=== PATIENT | female | born 1980 | race Caucasian/White ===

== ENCOUNTER → 2017-04-23 | Outpatient (CLI) | payer OTHER ==
[~2017-04-23] MED LIST: ALBU90OI INH; ALBU90OI61; ARIP10 PO; AZIT500 PO; Arava10 MG; BUPR100 PO; BUPR75 PO; CLIN300 PO; CODGUAEL PO; Crutch1 EACH MISC; DIPH50; DULO60; ESCI10 PO; FLUO20; FLUT44OIA; GLIP10 PO; HYDACE5 PO; IBUP800; LABE100; METF500 PO; METF850; METTREX2.5 PO; MULVITMINE PO; NAPR500 PO; NITR100CA PO; NORETHINDRONE; NORT25 PO; PANT40 PO; PHENA200 PO; Pepcid40 MG PO; QUET100 PO; RANI150 PO; RXCODGUASY PO; SERT50 PO; TOPI25 PO; TRAZ50 PO; [UNRECOGNIZED DRUG - OTHER]
== END ==
LOC: LAB SHORT 12:30
DX: R30.0 Dysuria (principal)
CPT/HCPCS: 87086

== ENCOUNTER → 2017-04-26 | Outpatient (CLI) | payer OTHER | END | disposition home or self-care (01) | LOC: LAB 15:46 | DX: N39.0 Urinary tract infection, site not specified (principal) | CPT/HCPCS: 87086 ==

== ENCOUNTER → 2018-05-30 | Outpatient (CLI) | payer OTHER | END | disposition home or self-care (01) | LOC: LAB 16:22 → LAB SHORT 16:22 | DX: N39.0 Urinary tract infection, site not specified (principal) | CPT/HCPCS: 87077; 87086; 87186 ==

== ENCOUNTER → 2018-06-18 | Outpatient (CLI) | payer OTHER | END | disposition home or self-care (01) | LOC: LAB 17:40 → LAB SHORT 17:40 | DX: N39.0 Urinary tract infection, site not specified (principal) | CPT/HCPCS: 87077; 87086; 87186 ==

== ENCOUNTER → 2018-11-05 | Outpatient (CLI) | payer OTHER | END | disposition home or self-care (01) | LOC: LAB SHORT 16:19 → LAB 16:19 | DX: N39.0 Urinary tract infection, site not specified (principal) | CPT/HCPCS: 87077; 87086; 87186 ==

== ENCOUNTER → 2020-12-16 | Outpatient (CLI) | payer OTHER | LOC: LAB SHORT 11:06 → LAB 11:06 | DX: L03.113 Cellulitis of right upper limb (principal); Z88.0 Allergy status to penicillin; Z88.1 Allergy status to other antibiotic agents | CPT/HCPCS: 87070; 87205 ==

== ENCOUNTER 2021-05-10 18:48 | Emergency (ER) | payer OTHER ==
[~2021-05-10] VITALS: Ht 172.7 cm; Wt 133.8 kg
[~2021-05-10 18:48] MED LIST changes: +ALBU90OI; +AMLODIPINE-OLM1 EAC2 PO; +BASAGLAR K100 UNIT/6 SC; +LAMO100 PO; +LITH300C PO; +LOSA50 PO; +OLAN10 PO
[2021-05-10 20:40] LABS: BASOPHILS ABSOLUTE AUTO 0.14 K/mm3 (0.00-0.23); BASOPHILS PERCENT AUTO 1 % (0-2); EOSINOPHILS ABSOLUTE AUTO 0.25 K/mm3 (0.00-0.68); EOSINOPHILS PERCENT AUTO 2 % (0-6); Hematocrit 40.2 % (33.0-51.0); Hemoglobin 12.9 g/dL (11.5-16.0); IMMATURE GRAN ABSOLUTE AUTO 0.54 K/mm3 (0.00-0.10); IMMATURE GRAN PERCENT AUTO 3 % (0-1); LYMPHOCYTES ABSOLUTE AUTO 3.47 K/mm3 (0.84-5.20); LYMPHOCYTES PERCENT AUTO 21 % (21-46); MONOCYTES ABSOLUTE AUTO 1.25 K/mm3 (0.16-1.47); MONOCYTES PERCENT AUTO 7 % (4-13); Mean Corpuscular HGB 26.1 pg (26.0-34.0); Mean Corpuscular HGB Conc 32.1 g/dL (31.5-36.5); Mean Corpuscular Volume 81 fL (80-100); Mean Platelet Volume 9.3 fL (9.1-12.4); NEUTROPHILS ABSOLUTE AUTO 11.15 K/mm3 (1.96-9.15); NEUTROPHILS PERCENT AUTO 66 % (41-73); Platelet Count 502 K/mm3 (150-400); RDW Coefficient Variation 15.4 % (11.7-14.2); RDW Standard Deviation 45.7 fL (35.1-46.3); Red Blood Cell Count 4.94 M/mm3 (3.80-5.20)
[2021-05-10 21:01] LABS: Albumin, Blood 3.9 g/dL (3.4-5.0); Bilirubin, Total 0.4 mg/dL (0.1-1.0); Bun/Creatinine Ratio 20.8 (12.0-20.0); Calcium, Blood 10.1 mg/dL (8.5-10.1); Creatinine, Blood 1.68 mg/dL (0.40-1.00); Globulin, Blood 3.9 g/dL (2.2-4.0); Potassium, Blood 3.7 mmol/L (3.5-5.5); Total Protein, Blood 7.8 g/dL (6.4-8.2)
[2021-05-10 23:10] LABS: Source, Urine Clean Catch
[2021-05-10 23:12] LABS: Blood, Urine 4+ (Neg); Glucose Qualitative, Urine Neg (Neg); Ketones, Urine 1+ (Neg); Leukocyte Esterase, Urine 3+ (Neg); Nitrite, Urine Neg (Neg); Protein, Urine 3+ (Neg); Urobilinogen, Urine NORM (Normal)
[2021-05-10 23:20] LABS: Appearance, Urine Cloudy (Clear); Bilirubin, Urine 1+ (Neg); Color, Urine Yellow (P-Yellow)
[2021-05-10 23:21] LABS: Bacteria Many /hpf; Squamous Epithelial Cells Many /hpf (Few); White Blood Cells, Urine 25-50 /hpf (0-5)
[2021-05-11] MEDS ORDERED: CIPR500 PO (01:06)
== END 2021-05-11 01:35 | disposition home or self-care (01) ==
LOC: ER 18:48
PROVIDERS: Physician Assistant
DX: N17.9 Acute kidney failure, unspecified (principal); N39.0 Urinary tract infection, site not specified; E86.0 Dehydration; R42 Dizziness and giddiness; R25.1 Tremor, unspecified; I10 Essential (primary) hypertension; J45.909 Unspecified asthma, uncomplicated; E11.9 Type 2 diabetes mellitus without complications; Z88.0 Allergy status to penicillin; Z88.1 Allergy status to other antibiotic agents; Z88.8 Allergy status to other drugs, medicaments and biological substances; Z79.899 Other long term (current) drug therapy; Z79.4 Long term (current) use of insulin
CPT/HCPCS: 36415; 80053; 81001; 83605; 84703; 85025; 87086; 93005; 93010; 99284-25; A9270; J7030

== ENCOUNTER 2022-01-06 06:26 | Day surgery (SDC) | payer OTHER ==
[~2022-01-06] VITALS: Ht 172.7 cm; Wt 168.0 kg
[~2022-01-06 06:26] MED LIST changes: +Amlodipine Bes2.5 MG PO; +CIPR500 PO; +LOSARTAN-HCTZ1 EACH PO
[2022-01-06] MEDS ORDERED: INSULIN AS100 UNIT10 SC (06:52)
== END 2022-01-06 23:26 | disposition home or self-care (01) ==
LOC: MHTC 06:26
DX: I08.1 Rheumatic disorders of both mitral and tricuspid valves (principal); R07.89 Other chest pain; R00.2 Palpitations; I10 Essential (primary) hypertension; E11.9 Type 2 diabetes mellitus without complications; K21.9 Gastro-esophageal reflux disease without esophagitis; J45.909 Unspecified asthma, uncomplicated; G47.33 Obstructive sleep apnea (adult) (pediatric); Z87.891 Personal history of nicotine dependence; Z88.1 Allergy status to other antibiotic agents; Z88.0 Allergy status to penicillin; Z79.4 Long term (current) use of insulin; Z79.899 Other long term (current) drug therapy
CPT/HCPCS: 93312; 93325; A9270; J7120

== ENCOUNTER → 2022-12-06 | Outpatient (CLI) | payer OTHER ==
[~2022-12-06] MED LIST changes: +INSULIN AS100 UNIT10 SC
== END | disposition home or self-care (01) ==
LOC: LAB 15:47 → LAB SHORT 15:47
DX: S01.81XA Laceration without foreign body of other part of head, initial encounter (principal)
CPT/HCPCS: 87070; 87081; 87205

== ENCOUNTER → 2024-01-12 | Outpatient (CLI) | payer OTHER | END | disposition home or self-care (01) | LOC: LAB 17:42 → LAB SHORT 17:42 | DX: B99.9 Unspecified infectious disease (principal) | CPT/HCPCS: 87081 ==